=== PATIENT | female | born 1960 | race Caucasian/White ===

== ENCOUNTER 2016-08-20 18:55 | Emergency (ER) | payer SELFPAY ==
[~2016-08-20] VITALS: Ht 165.1 cm; Wt 154.2 kg
[2016-08-20] MEDS ORDERED: MORPHINE SULFATE INJ 4 MG/ML DISP.SYRIN ONE (20:22)
[2016-08-20] MEDS ORDERED: IV SET PRIMARY 1 EA INFUS.SET MC ONE (20:22)
[2016-08-20] MEDS ORDERED: ONDANSETRON HCL/PF 4 MG/2 ML VIAL ONE (20:22)
[2016-08-20] MEDS ORDERED: IV NS 0.9% 1,000 ML ONE (20:22)
[2016-08-20] MEDS ORDERED: ONDANSETRON HCL/PF 4 MG/2 ML VIAL IVP ONE (20:30)
[2016-08-20] MEDS ORDERED: IV NS 0.9% 1,000 ML BAG IV ONE (20:30)
[2016-08-20] MEDS ORDERED: MORPHINE SULFATE INJ 2 MG/ML DISP.SYRIN IV ONE (20:30)
[2016-08-20 20:32] LABS: BASOPHILS % (AUTO) 0.2 % (0.0-2.0); DIFF TOTAL % 100 %; EOSINOPHILS # (AUTO) 0.1 /CMM (0.0-0.7); EOSINOPHILS % (AUTO) 1.4 % (0.0-6.0); HEMATOCRIT 39 % (33-45); LYMPHOCYTES # (AUTO) 1.5 /CMM (0.8-4.8); LYMPHOCYTES % (AUTO) 25.7 % (20.0-44.0); MEAN CORPUSCULAR HEMOGLOBIN 28 PG (26.0-33.0); MEAN CORPUSCULAR HGB CONC 33 g/dl (31.0-36.0); MEAN CORPUSCULAR VOLUME 84 fL (82-100); MONOCYTES # (AUTO) 0.4 /CMM (0.1-1.30); MONOCYTES % (AUTO) 6.4 % (2.0-12.0); NEUTROPHILS # (AUTO) 3.8 /CMM (1.8-8.9); NEUTROPHILS % (AUTO) 66.3 % (43.0-81.0); PLATELET COUNT (AUTO) 259 /CMM (150-450); RED BLOOD CELL COUNT(AUTO) 4.67 MIL/uL (4.0-5.2); WHITE BLOOD COUNT (AUTO) 5.8 K/uL (4.3-11.0)
[2016-08-20 20:42] LABS: ANION GAP 12 (5-14); CALCIUM, SERUM 8.8 mg/dL (8.5-10.1); CARBON DIOXIDE 27 mmol/L (21-32); CHLORIDE 103 mmol/L (98-107); CREATININE 0.7 mg/dL (0.6-1.3); GFR 88 mL/min (>60); GLUCOSE 108 mg/dL (74-106); SODIUM SERUM 138 mmol/L (136-145); UREA NITROGEN, BLOOD 10 mg/dL (7-18)
[2016-08-20 20:51] LABS: TROPONIN I < 0.017 ng/mL (0.00-0.056)
[2016-08-20 20:52] LABS: INR 0.99 (0.87-1.13); PROTHROMBIN TIME 10.7 SECS (9.5-12.7)
[2016-08-20 22:11] VITALS: BP 132/77
== END 2016-08-20 22:12 | disposition home or self-care (01) ==
LOC: ER 18:58
DX: R51 Headache (principal); I10 Essential (primary) hypertension
CPT/HCPCS: 36415; 71010; 73030; 80048; 84484; 85025; 85730; 93005; 96374; 96375; 99285; A4606; J2270; J2405; J7030; Z7610

== ENCOUNTER 2017-08-11 21:33 | Emergency (ER) | payer BC, OTHER ==
[~2017-08-11] VITALS: Ht 185.4 cm; Wt 149.7 kg
--- NOTE | 2017-08-11 21:45 | NUR ---
to bed 4 bib paramedics c/o L sided chest pain radiating to L shoulder x2 days. pt aaox4 no acute distress noted, resp even and unlabored. place pt on cardiac monitoring, continuous pox. pending er md stafford.
--- NOTE | 2017-08-11 21:46 | NUR ---
er md at bedside to eval pt with orders received.
[2017-08-11 22:21] LABS: BASOPHILS % (AUTO) 0.1 % (0.0-2.0); EOSINOPHILS % (AUTO) 0.5 % (0.0-6.0); HEMATOCRIT 38 % (33-45); HEMOGLOBIN 13.3 g/dL (11.5-14.8); LYMPHOCYTES # (AUTO) 0.8 /CMM (0.8-4.8); LYMPHOCYTES % (AUTO) 9.4 % (20.0-44.0); MEAN CORPUSCULAR HEMOGLOBIN 29 PG (26.0-33.0); MEAN CORPUSCULAR HGB CONC 35 g/dl (31.0-36.0); MEAN CORPUSCULAR VOLUME 85 fL (82-100); MONOCYTES # (AUTO) 0.5 /CMM (0.1-1.30); MONOCYTES % (AUTO) 6.2 % (2.0-12.0); NEUTROPHILS # (AUTO) 6.8 /CMM (1.8-8.9); NEUTROPHILS % (AUTO) 83.8 % (43.0-81.0); PLATELET COUNT (AUTO) 247 /CMM (150-450); RED BLOOD CELL COUNT(AUTO) 4.52 MIL/uL (4.0-5.2); WHITE BLOOD COUNT (AUTO) 8.1 K/uL (4.3-11.0)
[2017-08-11 22:32] LABS: CALCIUM, SERUM 9.7 mg/dL (8.5-10.1); CARBON DIOXIDE 27 mmol/L (21-32); CHLORIDE 101 mmol/L (98-107); CREATININE 0.8 mg/dL (0.6-1.3); GLUCOSE 134 mg/dL (74-106); POTASSIUM 4.5 mmol/L (3.5-5.1); SODIUM SERUM 138 mmol/L (136-145); UREA NITROGEN, BLOOD 11 mg/dL (7-18)
[2017-08-11 22:35] LABS: INR 0.98 (0.87-1.13); PROTHROMBIN TIME 10.2 SECS (9.5-12.7)
[2017-08-11 22:39] LABS: TROPONIN I < 0.017 ng/mL (0.00-0.056)
[2017-08-11] MEDS ORDERED: MORPHINE SULFATE INJ 4 MG/ML DISP.SYRIN ONE (22:50)
--- NOTE | 2017-08-11 22:52 | NUR ---
rn at bedside to medicate pt.
[2017-08-11] MEDS ORDERED: ONDANSETRON HCL/PF 4 MG/2 ML VIAL ONE (22:56)
[2017-08-11] MEDS ORDERED: MORPHINE SULFATE INJ 2 MG/ML DISP.SYRIN IV ONE (23:00)
[2017-08-11] MEDS ORDERED: ONDANSETRON HCL/PF 4 MG/2 ML VIAL IV ONE (23:30)
--- NOTE | 2017-08-11 23:43 | NUR ---
IV removed. Catheter intact and site benign. Pressure and 4x4 applied to site. No bleeding noted. Patient discharged to home in stable condition. Written and verbal after care instructions given. Patient verbalizes understanding of instruction. ambulatory with a steady gait
[2017-08-11 23:44] VITALS: BP 123/65
== END 2017-08-11 23:45 | disposition home or self-care (01) ==
LOC: ER 21:34
DX: R07.9 Chest pain, unspecified (principal); R51 Headache; I10 Essential (primary) hypertension
CPT/HCPCS: 36415; 71045; 80048; 84484; 85025; 85730; 93005; 96374; 96375; 99285; A4606; J2270; J2405; Z7610

== ENCOUNTER 2021-05-12 16:15 | Emergency (ER) | payer BC, MEDICAID ==
[~2021-05-12] VITALS: Ht 167.6 cm; Wt 150.1 kg
--- NOTE | 2021-05-12 16:20 | NUR ---
AAOX3, BIB daughter c/o left sided chest pain radiates to neck and back since 10am also c/o headache x last night. Resp is even and unlabored with nad noted. Skin is warm and dry. Baseline EKG: NSR. Placed on hospital gown and monitor. Provided warm blanket for comfort. Awaiting md for eval.
[2021-05-12 16:50] LABS: HEMATOCRIT 40 % (33-45); HEMOGLOBIN 12.9 g/dL (11.5-14.8); RED BLOOD CELL COUNT(AUTO) 4.61 MIL/uL (4.0-5.2)
[2021-05-12 16:55] LABS: BASOPHILS # (AUTO) 0.1 K/uL (0.0-0.2); BASOPHILS % (AUTO) 0.7 % (0.0-2.0); EOSINOPHILS % (AUTO) 1.8 % (0.0-6.0); LYMPHOCYTES # (AUTO) 2.5 K/uL (0.8-4.8); LYMPHOCYTES % (AUTO) 29.7 % (20.0-44.0); MEAN CORPUSCULAR HGB CONC 32 g/dl (31.0-36.0); MEAN CORPUSCULAR VOLUME 87 fL (82-100); MONOCYTES # (AUTO) 0.4 K/uL (0.1-1.30); MONOCYTES % (AUTO) 5.1 % (2.0-12.0); NEUTROPHILS # (AUTO) 5.3 K/uL (1.8-8.9); NEUTROPHILS % (AUTO) 62.7 % (43.0-81.0); PLATELET COUNT (AUTO) 267 K/uL (150-450); WHITE BLOOD COUNT (AUTO) 8.4 K/uL (4.3-11.0)
[2021-05-12 16:58] LABS: CALCIUM, SERUM 9.2 mg/dL (8.5-10.1); CARBON DIOXIDE 29 mmol/L (21-32); CHLORIDE 104 mmol/L (98-107); CREATININE 0.7 mg/dL (0.6-1.3); GLUCOSE 194 mg/dL (74-106); POTASSIUM 3.9 mmol/L (3.5-5.1); SODIUM SERUM 141 mmol/L (136-145); UREA NITROGEN, BLOOD 14 mg/dL (7-18)
[2021-05-12] MEDS ORDERED: HYDR-4077 PO (17:14)
[2021-05-12] MEDS ORDERED: MELO-105 PO (17:14)
[2021-05-12] MEDS ORDERED: ASPI-1420 PO (17:14)
[2021-05-12] MEDS ORDERED: GLIM2TAB31 PO (17:14)
[2021-05-12] MEDS ORDERED: CLON0.1T PO (17:14)
[2021-05-12] MEDS ORDERED: CARV25TA2 PO (17:14)
[2021-05-12] MEDS ORDERED: METF-442 PO (17:14)
[2021-05-12] MEDS ORDERED: OMEP20CA15 PO (17:14)
[2021-05-12] MEDS ORDERED: ATOR10TA PO (17:14)
[2021-05-12] MEDS ORDERED: IBUP-1953 PO (17:14)
[2021-05-12] MEDS ORDERED: GABA-532 PO (17:14)
[2021-05-12] MEDS ORDERED: ERGO500093 PO (17:14)
--- NOTE | 2021-05-12 17:50 | NUR ---
PHLEBATOMIST AT THE BEDSIDE
--- NOTE | 2021-05-12 17:56 | NUR ---
SHARON STEWART FROM [facility] CALLED DR. MARSH SPEAKING WITH DR. CARRERO.
--- NOTE | 2021-05-12 18:05 | NUR ---
COVID SWAB DONE AND SENT TO THE LAB
[2021-05-12] MEDS ORDERED: hydrALAZINE HCL IV 20 MG VIAL IV ONE (18:30)
--- NOTE | 2021-05-12 18:34 | NUR ---
CALLED [facility] [phone] PT ACCEPTED TO [facility] SNELL, LISA HERRERA [phone] WAITING FOR BED. WILL CALL US.
--- NOTE | 2021-05-12 18:45 | NUR ---
APRESOLINE 5 MG IV NOT ADMINISTERED PER DR CARRERO DUE TO BP 131/71 AND PULSE 85.
--- NOTE | 2021-05-12 18:52 | NUR ---
THE PATIENT IS ALERT AND ORIENTED X4. IN ROOM AIR AND DENIES SOB. RESPIRATION REGULAR AND UNLABORED. WILL CONTINUE TO MONITOR THE PATIENT.
--- NOTE | 2021-05-12 19:15 | NUR ---
REC'D REPORT FROM KIERSTEN PEACOCK FOR [facility]
--- NOTE | 2021-05-12 19:15 | NUR ---
REPORT GIVEN TO NURSE HURTADO FOR [facility]
[2021-05-12] MEDS ORDERED: IOHEXOL-350 100 ML VIAL IV ONE (21:12)
[2021-05-12] MEDS ORDERED: IV NS 0.9% 250 ML IV ONE (21:12)
--- NOTE | 2021-05-12 21:15 | NUR ---
COVID RESULT FAXED TO [facility] [phone]
--- NOTE | 2021-05-12 21:49 | NUR ---
spoke to brando pang to f/u. Per Diana, fax covid result to [facility] [phone]
--- NOTE | 2021-05-12 22:08 | NUR ---
called jesus to have image read, radiologist reading it now
--- NOTE | 2021-05-12 22:37 | NUR ---
Patient does not wish to proceed with medical care recommended by Dr. Argueta. Patient given information related to possible complications, up to and including , which could occur as a result of leaving the hospital at this time. Patient verbalizes understanding of risks involved due to leaving against medical advice. Patient has signed AMA form. IV removed. Catheter intact and site benign. Pressure and 4x4 applied to site. No bleeding noted. Pt ambulatory with a steady gait. Daughter giving pt ride home
[2021-05-12 22:48] VITALS: BP 157/90
== END 2021-05-12 22:37 | disposition left against medical advice (07) ==
LOC: ER 16:15
DX: R07.9 Chest pain, unspecified (principal); I11.9 Hypertensive heart disease without heart failure; R79.1 Abnormal coagulation profile; Z79.82 Long term (current) use of aspirin; Z79.84 Long term (current) use of oral hypoglycemic drugs; E11.9 Type 2 diabetes mellitus without complications; Z20.822 Contact with and (suspected) exposure to COVID-19
CPT/HCPCS: 36415; 71045; 71275; 80048; 84484; 85025; 85378; 87081; 87426; 93005; 99285; C9803; J7050; Q9967